=== PATIENT | male | born 1965 | race Caucasian/White ===

== ENCOUNTER 2017-07-10 14:25 | Emergency (ER) | payer MEDICAID ==
--- NOTE | 2017-07-10 15:16 | EDPHY ---
H & P Time Seen by Provider: 07/10/17 15:16 HPI/ROS: CHIEF COMPLAINT: Cough shortness of breath and right-sided chest pain HISTORY OF PRESENT ILLNESS: Patient had symptoms starting about 2 weeks ago was diagnosed with bronchitis at [facility] in [place]. He saw them last and started him on Combivent, he is just finishing his doxycycline prescription today. He presents today with 2-3 days of right-sided chest pain in the back of his chest which is worse with coughing or deep breath. He still has wheezing and shortness of breath which is severe and worse with exertion. Not associated with syncope or hemoptysis or fever or sputum production. REVIEW OF SYSTEMS: Eye: no change in vision ENT: no sore throat Cardiac: HPI Pulmonary: HPI HPI Abdomen: Vomited 4 times in the past 10 days currently has nausea Musculoskeletal: no back pain or leg swelling Skin: no rash Neuro: no headache Constitutional: no fever : no urinary symptoms A comprehensive 10 point review of systems is otherwise negative aside from elements mentioned in the history of present illness. PAST MEDICAL HISTORY: Includes diabetes and hypertension Social history: Tobacco smoker General Appearance: Alert and conversant, cooperative. Eyes: No scleral icterus. ENT, Mouth: Normal mucous membranes. Respiratory: Bilateral wheezing with prolonged expiratory phase but does speak in full sentences. Cardiovascular: Regular rate and rhythm. Gastrointestinal: Abdomen is soft and non tender. Neurological: Alert, face symmetric, normal motor and sensory in extremities. Skin: Warm and dry, no rashes. Musculoskeletal: No peripheral edema. No calf tenderness. Psychiatric: Not agitated. Emergency Department course/MDM: Patient presents with likely URI accompanied by reactive airway disease. The patient is adamant that he is allergic to prednisone or any steroids and that he had terrible leg swelling when he took it for back pain. He refuses any kind of steroids at this time. He took Tylenol 3 hr ago and naproxen at 5 or 6 this morning. 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 DuoNeb, albuterol neb, no steroids. Chest x-ray and IV fluids and Zofran 4 mg. Toradol if normal creatinine. 1610: Labs reviewed, D-dimer negative, low pretest probability for pulmonary embolism. 1840: 95% on room air, walked around the emergency department says he feels a lot better than when he came in he wants to be discharged, which I think is reasonable. He is mildly tachycardic which I would expect after multiple albuterol nebulizer treatments. No further nausea. Chest pain better. Discharge with inhalers, finished his antibiotics, lidocaine patch for his right -sided chest pain which is likely due to his coughing. At this point it is unlikely that he has pulmonary embolism or pneumothorax. Offered admission if he still feels like he is too short of breath and he declined. Smoking Status: Current every day smoker Constitutional: Initial Vital Signs Temperature (C) 36.5 C 07/10/17 14:29 Heart Rate 93 07/10/17 14:29 Respiratory Rate 18 07/10/17 14:29 Blood Pressure 158/107 H 07/10/17 14:29 O2 Sat (%) 95 07/10/17 14:29 O2 Delivery Mode Room Air Allergies/Adverse Reactions: codeine Allergy (Verified 07/10/17 14:27) dexamethasone [From Decadron] Allergy (Verified 07/10/17 14:27) haloperidol [From Haldol] Allergy (Verified 07/10/17 14:27) Penicillins Allergy (Verified 07/10/17 14:27) prednisone Allergy (Verified 07/10/17 14:27) Home Medications: Medication Instructions Recorded Albuterol 07/10/17 Albuterol Hfa Anes Only [Proair 2 puffs IH QID #1 mdi 07/10/17 Hfa Icu (*)] Combivent Respimat Inhal [place](*) 07/10/17 Doxycycline Hyclate 07/10/17 HCTZ (*) 07/10/17 Lidocaine [Lidoderm] 1 each TP DAILY PRN #5 adh..patch 07/10/17 Lisinopril 07/10/17 Metformin HCl 07/10/17 SUBOXONE 8mg/2mg 07/10/17 Medical Decision Making - Diagnostics Imaging Results: Imaging Impressions Chest X-Ray 07/10/17 15:24 Impression: Normal except for minimal airways disease. Chest x-ray personally interpreted shows bronchitis without infiltrate. Imaging: I viewed and interpreted images myself Differential Diagnosis: Differential diagnosis considered for shortness of breath including but not limited to pulmonary infectious process, COPD, asthma, pulmonary embolus and congestive heart failure. - Data Points Laboratory Results: Laboratory Results 07/10/17 15:32 07/10/17 15:32 07/10/1718 07/10/17 15:32 15:32 15:32 WBC 9.80 10^3/uL H 10^3/uL (3.80-9.50) RBC 5.05 10^6/uL 10^6/uL (4.40-6.38) Hgb 15.6 g/dL g/dL (13.7-17.5) Hct 45.6 % % (40.0-51.0) MCV 90.3 fL fL (81.5-99.8) MCH 30.9 pg pg (27.9-34.1) MCHC 34.2 g/dL g/dL (32.4-36.7) RDW 12.5 % % (11.5-15.2) Plt Count 220 10^3/uL 10^3/uL (150-400) MPV 10.1 fL fL (8.7-11.7) Neut % (Auto) 71.0 % % (39.3-74.2) Lymph % (Auto) 19.4 % % (15.0-45.0) [place] % (Auto) 6.9 % % (4.5-13.0) Eos % (Auto) 1.5 % % (0.6-7.6) Baso % (Auto) 0.5 % % (0.3-1.7) Nucleat RBC Rel Count 0.0 % % (0.0-0.2) Absolute Neuts (auto) 6.95 10^3/uL H 10^3/uL (1.70-6.50) Absolute Lymphs (auto) 1.90 10^3/uL 10^3/uL (1.00-3.00) Absolute Monos (auto) 0.68 10^3/uL 10^3/uL (0.30-0.80) Absolute Eos (auto) 0.15 10^3/uL 10^3/uL (0.03-0.40) Absolute Basos (auto) 0.05 10^3/uL 10^3/uL (0.02-0.10) Absolute Nucleated RBC 0.00 10^3/uL 10^3/uL (0-0.01) Immature Gran % 0.7 % % (0.0-1.1) Immature Gran # 0.07 10^3/uL 10^3/uL (0.00-0.10) D-Dimer < 0.27 ug/mLFEU ug/mLFEU (0.00-0.50) Sodium 136 mEq/L mEq/L (135-145) Potassium 4.0 mEq/L mEq/L (3.3-5.0) Chloride 95 mEq/L L mEq/L (97-110) Carbon Dioxide 28 mEq/l mEq/l (22-31) Anion Gap 13 mEq/L mEq/L (8-16) BUN 18 mg/dL mg/dL (7-23) Creatinine 0.9 mg/dL mg/dL (0.7-1.3) Estimated GFR > 60 Glucose 138 mg/dL H mg/dL (70-100) Calcium 10.9 mg/dL H mg/dL (8.5-10.4) Phosphorus 4.3 mg/dL mg/dL (2.5-4.5) Medications Given: Discontinued Medications Albuterol (Proventil Neb) 3 ml IH EDNOW ONE Stop: 07/10/17 15:25 Last Admin: 07/10/17 15:48 Dose: 3 ml Albuterol (Proventil Neb) 3 ml IH EDNOW ONE Stop: 07/10/17 16:11 Last Admin: 07/10/17 16:16 Dose: 3 ml Albuterol (Proventil Neb) 3 ml IH EDNOW ONE Stop: 07/10/17 17:05 Last Admin: 07/10/17 17:30 Dose: 3 ml Albuterol/Ipratropium (Duoneb) 3 ml IH EDNOW ONE Stop: 07/10/17 15:25 Last Admin: 07/10/17 15:48 Dose: 3 ml Sodium Chloride (Ns) 1,000 mls @ 0 mls/hr IV EDNOW ONE; Wide Open PRN Reason: Protocol Stop: 07/10/17 15:25 Last Admin: 07/10/17 15:39 Dose: 1,000 mls Ketorolac Tromethamine (Toradol) 15 mg IVP EDNOW ONE Stop: 07/10/17 16:11 Last Admin: 07/10/17 16:16 Dose: 15 mg Miscellaneous Medication (Icy Hot Lidocaine/Menthol 4%/1% Patch) 1 patch TD EDNOW ONE Stop: 07/10/17 16:11 Last Admin: 07/10/17 16:16 Dose: 1 patch Ondansetron HCl (Zofran) 4 mg IVP EDNOW ONE Stop: 07/10/17 15:25 Last Admin: 07/10/17 15:39 Dose: 4 mg Departure - Departure Disposition: Home, Routine, Self-Care Clinical Impression: Acute bronchitis Qualifiers: Bronchitis organism: unspecified organism Qualified Code(s): J20.9 - Acute bronchitis, unspecified Condition: Good Instructions: Acute Bronchitis (ED) Referrals: [facility] [Other] - As per Instructions Prescriptions: Albuterol Hfa Anes Only [Proair Hfa Icu (*)] 2 puffs IH QID #1 mdi Lidocaine [Lidoderm] 1 each TP DAILY PRN #5 adh..patch PRN Reason: right chestpain
[2017-07-10] MEDS ORDERED: NS 1,000 ML IV ONE (15:24)
[2017-07-10] MEDS ORDERED: ALBUTEROL 3 ML DEYVIAL IH ONE ×3 (15:24→17:04)
[2017-07-10] MEDS ORDERED: ONDANSETRON 4 MG/2 ML VIAL IVP ONE (15:24)
[2017-07-10] MEDS ORDERED: IPRATROPIUM/ALBUTEROL 3 ML DEYVIAL IH ONE (15:24)
[2017-07-10 15:45] LABS: PLATELET COUNT 220 10^3/uL (150-400)
[2017-07-10] MEDS ORDERED: LIDOCAINE 4%/MENTHOL 1% PATCH TD ONE (16:10)
[2017-07-10] MEDS ORDERED: KETOROLAC 15 MG/1 ML SDV IVP ONE (16:10)
[2017-07-10 18:38] VITALS: BP 129/75
[2017-07-10] MEDS ORDERED: PATCH REMOVAL 1 EA PATCH TD SCH (21:00)
== END 2017-07-10 18:58 | disposition home or self-care (01) ==
DX: J20.9 Acute bronchitis, unspecified (principal); E86.9 Volume depletion, unspecified; I10 Essential (primary) hypertension; E11.9 Type 2 diabetes mellitus without complications; F17.200 Nicotine dependence, unspecified, uncomplicated; Z79.84 Long term (current) use of oral hypoglycemic drugs
CPT/HCPCS: 96374; J1885; J2405; J7613